=== PATIENT | male | born 2000 | race Caucasian/White ===

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

== ENCOUNTER 2022-03-15 16:25 | Emergency (ER) | payer OTHER, MEDICAID, SELFPAY ==
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
[2022-03-15 16:31] VITALS: BP 124/63; BP 137/70; PULSE 62; PULSE 79; RESP 16; TEMP 35.5; O2SAT 100; BMI 27.8
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
[2022-03-15 17:06] LABS: MANUAL DIFF FLAG NO
[2022-03-15 17:08] LABS: Basophils Absolute Auto 0.1 X10*3/uL (0.0-0.2); Basophils Percent Auto 0.5 % (0-2); Eosinophils Absolute Auto 0.3 X10*3/uL (0.0-0.4); Eosinophils Percent Auto 2.6 % (0-4); Hematocrit 41.8 % (42.0-52.0); Hemoglobin 14.3 g/dl (14.0-18.0); Imm Gran Abs Auto 0.04 X10*3/uL (0.00-0.03); Imm Gran Pct Auto 0.4 % (0.0-0.4); Lymphocytes Absolute Auto 1.6 X10*3/uL (1.2-4.9); Lymphocytes Percent Auto 17.1 % (20-40); Mean Corpuscular HGB Conc 34.2 g/dl (31.0-36.0); Mean Corpuscular Hemoglobin 29.1 pg (27.0-33.0); Mean Platelet Volume 10.3 fL (9.4-12.4); Monocytes Absolute Auto 0.7 X10*3/uL (0.1-1.2); Monocytes Percent Auto 7.1 % (2-11); Neutrophils Percent Auto 72.3 % (45-73); Platelet Count 260 X10*3/uL (160-400); Red Blood Count 4.92 X10*6/uL (4.60-5.80); Red Cell Distribution Width 12.5 % (11.0-16.0); White Blood Count 9.6 X10*3/uL (4.8-10.8)
[2022-03-15 17:20] LABS: Ethanol < 10 mg/dL
[2022-03-15 17:23] LABS: Alanine Aminotransferase 27 U/L (0-40); Albumin Level 4.3 g/dL (3.5-5.0); Alkaline Phosphatase 57 U/L (39-117); Anion Gap 10 (12-20); Aspartate Amino Transferase 31 U/L (5-37); Bilirubin Direct 0.3 mg/dL (0.0-0.5); Bilirubin Total 0.7 mg/dL (0.0-1.0); Blood Urea Nitrogen 15 mg/dL (9-16); Calcium 9.3 mg/dL (8.4-10.2); Carbon Dioxide 25 mmol/L (22-29); Chloride 107 mmol/L (96-108); Creatinine Clr Calc Pharmacy 167.6; Estimated Glomerular Filt Rate > 60; Glucose Random 105 mg/dL (60-115); Sodium 138 mmol/L (135-145); Total Protein 6.9 g/dL (6.5-8.0)
[2022-03-15] MEDS: Acetaminophen 325 MG TABLET 650 MG PO (17:24)
[2022-03-15] MEDS: ondansetron HCL 4 MG/2 ML VIAL IVPUSH (17:24)
[2022-03-15 17:46] LABS: Lipase 28 U/L (8-78)
== END 2022-03-15 19:43 | disposition home or self-care (01) ==
PROVIDERS: Emergency Provider Emergency Medicine; PCP Nurse Practitioner
DX: S06.0X9A Concussion with loss of consciousness of unspecified duration, initial encounter (principal); S13.4XXA Sprain of ligaments of cervical spine, initial encounter; S46.911A Strain of unspecified muscle, fascia and tendon at shoulder and upper arm level, right arm, initial encounter; S61.402A Unspecified open wound of left hand, initial encounter; J45.909 Unspecified asthma, uncomplicated; V49.9XXA Car occupant (driver) (passenger) injured in unspecified traffic accident, initial encounter; Y93.9 Activity, unspecified; Y92.410 Unspecified street and highway as the place of occurrence of the external cause; Y99.9 Unspecified external cause status
CPT/HCPCS: 36415; 70450; 71250; 72125; 73030; 74176; 80048; 80076; 82077; 83690; 85025; 96374; 99283; 99284; J2405

== ENCOUNTER 2022-11-21 18:13 | Emergency (ER) | payer MEDICAID, SELFPAY ==
--- NOTE | ~2022-11-21 | XR_ITS ---
EXAMINATION: XR HAND, RIGHT CLINICAL INFORMATION: Postreduction COMPARISON: Same-day radiographs TECHNIQUE: 3 views of the hand XR/XR hand RT 2V FINDINGS/IMPRESSION: Again seen is a minimally comminuted fracture of the fifth distal metacarpal diaphysis in improved alignment with minimal residual volar angulation. Overlying cast material obscures fine osseus detail. Soft tissue swelling about the hand.
--- NOTE | ~2022-11-21 | XR_ITS ---
EXAMINATION: XR HAND, RIGHT CLINICAL INFORMATION: Hand radiographs COMPARISON: None TECHNIQUE: 3 views of the hand FINDINGS: Acute minimally comminuted oblique fracture of the fifth distal metacarpal diaphysis with volar angulation of the distal fracture fragments. Joint spaces are maintained. No cortical erosion. Soft tissue swelling over the dorsum of the hand. XR/XR hand RT 2V IMPRESSION: Acute minimally comminuted oblique fracture of the fifth distal metacarpal diaphysis with volar angulation of the distal fracture fragments. Soft tissue swelling.
--- NOTE | 2022-11-21 18:15 | ED_ITS ---
HPI - Extremity Injury (Upper) General Chief Complaint: Wound/Laceration <Nasrin Tai NP - Last Filed: 11/21/22 18:16> Stated Complaint: Right hand injury; knuckles <Nasrin Tai NP - Last Filed: 11/21/22 18:16> Time Seen by Provider: 11/21/22 18:20 <Nasrin Tai NP - Last Filed: 11/21/22 18:16> Source: patient <Gary Sanchez MD - Last Filed: 11/21/22 20:27> Mode of arrival: ambulatory <Gary Sanchez MD - Last Filed: 11/21/22 20:27> Limitations: no limitations <Gary Sanchez MD - Last Filed: 11/21/22 20:27> History of Present Illness HPI narrative: 22-year-old male came in for evaluation of right hand pain after punching the wall. Patient got angry and punched the wall causing swelling of his right hand. Patient is a [id number], patient declined any SI or HI or hallucination. <Gary Sanchez MD - Last Filed: 11/21/22 20:27> Related Data Home Medications: Previous Rx's Medication Instructions Recorded cyclobenzaprine 10 mg tablet 10 mg PO TID PRN muscle spasm #14 03/15/22 tabs ibuprofen 600 mg tablet 600 mg PO Q6H PRN pain #30 tabs 03/15/22 lidocaine 5 % topical patch 1 patch topical DAILY #30 ea 03/15/22 ondansetron 4 mg disintegrating 4 mg PO Q8H PRN nausea and 03/15/22 tablet vomiting #20 tabs <Nasrin Tai NP - Last Filed: 11/21/22 18:16> Allergies/Adverse Reactions: Allergies Allergy/AdvReac Type Severity Reaction Status Date / Time No Known Allergies Allergy Unverified 06/20/20 17:45 [No Known Allergies*] <Nasrin Tai NP - Last Filed: 11/21/22 18:16> Review of Systems Review of Systems: All other systems are reviewed and are negative Constitutional: Reports as per HPI and Reports no additional constitutional complaints Eyes: Reports as per HPI and Reports no additional eye complaints Reports system reviewed and no additional complaints, except as documented Cardiovascular: Reports as per HPI and Reports no additional cardiovascular complaints Respiratory: Reports as per HPI and Reports no additional respiratory complaints Gastrointestinal: Reports as per HPI and Reports no additional gastrointestinal complaints Genitourinary: Reports no additional female genitourinary complaints Musculoskeletal: Reports no additional musculoskeletal complaints Skin/Breast: Reports system reviewed and no additional complaints, except as docu Psychiatric: Reports no additional psychiatric complaints Endocrine: Reports no additional endocrine complaints Hematologic/Lymphatic: Reports no additional hematologic/lymphatic complaints Allergic/Immunologic: Reports no additional allergic/immunologic complaints Reports system reviewed and no additional complaints, except as documented and Reports Abnormal speech present <Gary Sanchez MD - Last Filed: 11/21/22 20:27> FOR[facility]LY [facility] Past Medical History Medical History: Medical History Asthma <Nasrin Tai NP - Last Filed: 11/21/22 18:16> Social History Social History: Social History Patient Tobacco Use Status: Never used Tobacco Advance Directives: No Advance Directives Information Provided: No <Nasrin Tai NP - Last Filed: 11/21/22 18:16> Physical Exam Vital Signs: Vital Signs: Last Vital Signs Temp 98.4 F 11/21/22 20:00 Pulse 68 11/21/22 20:00 Resp 16 11/21/22 20:00 BP 139/54 L 11/21/22 20:00 Pulse Ox 98 11/21/22 20:00 O2 Del Method 11/21/22 20:00 BMI result Body Mass Index 27.8 <Nasrin Tai NP - Last Filed: 11/21/22 18:16> Vital Signs: Last Vital Signs Temp 98.4 F 11/21/22 20:00 Pulse 68 11/21/22 20:00 Resp 16 11/21/22 20:00 BP 139/54 L 11/21/22 20:00 Pulse Ox 98 11/21/22 20:00 O2 Del Method 11/21/22 20:00 BMI result Body Mass Index 27.8 Vital signs have been reviewed as appeared to be correct. Blood pressure normal. Heart rate normal. Respiration rate normal. Temperature normal. Oxygen saturation normal. <Gary Sanchez MD - Last Filed: 11/21/22 20:27> Appearance: Alert. Oriented X3. No acute distress. Head: Normal external exam. Normocephalic. Atraumatic. No Schumacher signs noted. No raccoon eyes noted Eyes: PERRLA. EOMI. Conjunctiva and sclera normal. Eyelids normal. ENT: TM's Normal. Pharynx normal. Uvula midline. Moist mucous membranes. No trismus noted. No drooling noted. No muffled voice noted. Neck: Normal inspection. Neck supple. FROM. No adenopathy. Thyroid Normal. No meningeal signs. No neck mass noted. CVS: Normal heart rate and rhythm. Heart sound normal. No murmurs noted. Pulses normal throughout. Respiratory: No respiratory distress. Painless inspiration. Breath sounds normal. No wheezes/rales/rhonchi noted. Chest nontender. No accessory muscle usage noted or decreased air movement noted. Abdomen: Soft and nontender. Bowel sounds normal in all 4 quadrants. No distention noted. No organomegaly noted. No visible injury noted. Back: No CVA tenderness. Full range of motion noted. Skin: Skin warm and dry. Normal skin color. Normal skin turgor. No rashes/lesions/lacerations noted. Extremities: Right hand exam: Tenderness with deformity and swelling over 5th distal metacarpal bone, able to move all fingers, neurovascularly intact. Neuro: Oriented X 3. Cranial nerve exam: II-XII are grossly intact No motor deficit. No sensory deficit. Reflexes normal. <Gary Sanchez MD - Last Filed: 11/21/22 20:27> Course Course Course Narrative: This is a rapid medical exam. Deferred additional HPI, ROS, PE to primary provider. 22 yo male right handed here with right hand pain after punching house wall. Will need x-rays. VSS <Nasrin Tai NP - Last Filed: 11/21/22 18:16> Reevaluation(s) Reevaluation #1: Right hand boxer fracture after punched a wall, attempt to reduce the fracture in the ED, apply splint, ice, NSAIDs if needed for pain and follow up with Ortho. <Gary Sanchez MD - Last Filed: 11/21/22 20:27> Time: 19:26 <Gary Sanchez MD - Last Filed: 11/21/22 20:27> Medical Decision Making Differential Diagnosis Differential Diagnoses: The differential diagnosis associated with the presentation includes (Hand contusion, fracture, neurovascular compromise.) <Gary Sanchez MD - Last Filed: 11/21/22 20:27> Independent Interpretation I performed an independent interpretation of an: Plain X-Ray (Right hand:Acute minimally comminuted oblique fracture of the fifth distal metacarpal diaphysis with volar angulation of the distal fracture fragments. Soft tissue swelling. ) <Gary Sanchez MD - Last Filed: 11/21/22 20:27> Radiology Impression Discussion of test interpretation with radiology: I have reviewed the radiologist's reading. <Gary Sanchez MD - Last Filed: 11/21/22 20:27> Procedures Orthopedic Fracture Reduction Fracture #1: Time Out Performed: Yes <Gary Sanchez MD - Last Filed: 11/21/22 20:27> Side: right <Gary Sanchez MD - Last Filed: 11/21/22 20:27> Fracture Reduction Location: metacarpal (First) <Gary Sanchez MD - Last Filed: 11/21/22 20:27> Analgesia: none <Gary Sanchez MD - Last Filed: 11/21/22 20:27> Technique: direct manipulation and traction/counter-traction <Gary Sanchez MD - Last Filed: 11/21/22 20:27> Post Reduction X-rays Demonstrate: acceptable reduction <Gary Sanchez MD - Last Filed: 11/21/22 20:27> Post-reduction neuro exam: intact <Gary Sanchez MD - Last Filed: 11/21/22 20:27> Post-reduction vascular exam: intact <Gary Sanchez MD - Last Filed: 11/21/22 20:27> Splint Applied: Yes <Gary Sanchez MD - Last Filed: 11/21/22 20:27> Patient Tolerated Procedure: well <Gary Sanchez MD - Last Filed: 11/21/22 20:27> Discharge Plan Discharge Clinical Impression: Fracture of fifth metacarpal bone of right hand <Nasrin Tai NP - Last Filed: 11/21/22 18:16> Patient Disposition: Home, Self-Care <Nasrin Tai NP - Last Filed: 11/21/22 18:16> Instructions: Hand Fracture (ED) <Nasrin Tai NP - Last Filed: 11/21/22 18:16> Prescriptions: No Action cyclobenzaprine 10 mg tablet 10 mg PO TID PRN (Reason: muscle spasm) Qty: 14 0RF lidocaine 5 % adhesive patch,medicated 1 patch topical DAILY Qty: 30 0RF Rx Instructions: leave on most painful area for up to 12 hrs ibuprofen 600 mg tablet 600 mg PO Q6H PRN (Reason: pain) Qty: 30 0RF ondansetron 4 mg tablet,disintegrating 4 mg PO Q8H PRN (Reason: nausea and vomiting) Qty: 20 0RF <Nasrin Tai NP - Last Filed: 11/21/22 18:16> Referrals: Otoniel Foster MD [Physician] - <Nasrin Tai NP - Last Filed: 11/21/22 18:16> Stand Alone Forms: Work/School Release <Nasrin Tai NP - Last Filed: 11/21/22 18:16>
[2022-11-21 18:16] VITALS: BP 126/65; PULSE 57; RESP 16; TEMP 36.6; O2SAT 99; BMI 27.8
[2022-11-21 20:00] VITALS: BP 139/54; PULSE 68; RESP 16; TEMP 36.9; O2SAT 98
== END 2022-11-21 20:34 | disposition home or self-care (01) ==
PROVIDERS: Emergency Provider Emergency Medicine; PCP Nurse Practitioner
DX: S62.396A Other fracture of fifth metacarpal bone, right hand, initial encounter for closed fracture (principal); W22.09XA Striking against other stationary object, initial encounter; Y93.89 Activity, other specified; Y92.9 Unspecified place or not applicable; Y99.9 Unspecified external cause status
CPT/HCPCS: 26605; 73120; 99283; 99284

== ENCOUNTER 2022-11-30 11:05 | Outpatient (REF) | payer MEDICAID, SELFPAY ==
--- NOTE | ~2022-11-30 | XR_ITS ---
EXAMINATION: XR HAND, RIGHT CLINICAL INFORMATION: Pain COMPARISON: Right hand radiograph from 11/21/2022 TECHNIQUE: PA, lateral, and oblique views of the right hand. FINDINGS: Overlying ulnar gutter splint slightly obscures fine osseous and soft tissue detail. Redemonstration of minimally comminuted apex displaced fracture involving the fifth distal metacarpal diaphysis. Joint spaces and alignment are maintained. Soft tissues are unremarkable. XR/XR hand RT min 3V IMPRESSION: 1. Overlying ulnar gutter splint slightly obscures fine osseous and soft tissue detail. 2. Redemonstration of minimally comminuted apex dorsal fracture involving the fifth metacarpal distal diaphysis.
== END 2022-11-30 11:06 | disposition home or self-care (01) ==
LOC: HO.HOSX 11:05
PROVIDERS: Visit Provider Physician Assistant
DX: S62.316A Displaced fracture of base of fifth metacarpal bone, right hand, initial encounter for closed fracture (principal); W22.09XA Striking against other stationary object, initial encounter
CPT/HCPCS: 26600; 73130; 99202

== ENCOUNTER 2022-12-10 05:59 | Outpatient (REF) | payer MEDICAID, SELFPAY ==
--- NOTE | ~2022-12-10 | XR_ITS ---
EXAMINATION: XR HAND, RIGHT CLINICAL INFORMATION: Fracture COMPARISON: 11/30/2022 TECHNIQUE: PA, lateral, and oblique views of the right hand. FINDINGS: Redemonstration of horizontally oriented fracture of the fifth metacarpal head with palmar angulation of the distal fracture fragment. XR/XR hand RT min 3V IMPRESSION: Redemonstration of horizontally oriented fracture of the fifth metacarpal head with palmar angulation of the distal fracture fragment.
== END 2022-12-10 06:00 | disposition home or self-care (01) ==
LOC: HO.HOSX 05:59
PROVIDERS: Visit Provider Physician Assistant
DX: S62.336D Displaced fracture of neck of fifth metacarpal bone, right hand, subsequent encounter for fracture with routine healing (principal)
CPT/HCPCS: 29085; 73130

== ENCOUNTER 2023-01-11 11:23 | Outpatient (REF) | payer MEDICAID, SELFPAY ==
--- NOTE | ~2023-01-11 | XR_ITS ---
EXAMINATION: XR HAND, RIGHT CLINICAL INFORMATION: Right hand pain COMPARISON: 12/10/2022 TECHNIQUE: PA, lateral, and oblique views of the right hand. FINDINGS: Redemonstration of horizontally oriented fracture of the fifth metacarpal head with mild angulation of the distal fracture fragment without significant interval callus formation. Remaining osseous structures are preserved. XR/XR hand RT min 3V IMPRESSION: Redemonstration of horizontally oriented fracture of the fifth metacarpal head with mild angulation of the distal fracture fragment.
== END 2023-01-11 11:24 | disposition home or self-care (01) ==
LOC: HO.HOSX 11:23
PROVIDERS: Visit Provider Physician Assistant
DX: S62.336D Displaced fracture of neck of fifth metacarpal bone, right hand, subsequent encounter for fracture with routine healing (principal)
CPT/HCPCS: 73130

== ENCOUNTER 2023-02-22 07:10 | Outpatient (REF) | payer MEDICAID, SELFPAY ==
--- NOTE | ~2023-02-22 | XR_ITS ---
EXAMINATION: XR HAND, RIGHT CLINICAL INFORMATION: Pain. COMPARISON: Radiograph of the right hand 01/11/2023. TECHNIQUE: PA, lateral, and oblique views of the right hand. FINDINGS: Again noted distal fifth metacarpal fracture with increased osseous bridging and a less distinct fracture line indicating healing. Mild angulation of the distal fracture fragment is unchanged. No significant callus formation. Remaining osseous structures are within normal limits. XR/XR hand RT min 3V IMPRESSION: Healing distal fifth metacarpal fracture with unchanged mild angulation of the distal fracture fragment.
== END 2023-02-22 07:11 | disposition home or self-care (01) ==
LOC: HO.HOSX 07:10
PROVIDERS: Visit Provider Physician Assistant
DX: S62.306D Unspecified fracture of fifth metacarpal bone, right hand, subsequent encounter for fracture with routine healing (principal); X58.XXXD Exposure to other specified factors, subsequent encounter
CPT/HCPCS: 73130; 99212

== ENCOUNTER 2024-04-03 08:33 | Emergency (ER) | payer BC, SELFPAY ==
--- NOTE | ~2024-04-03 | XR_ITS ---
EXAMINATION: XR LUMBOSACRAL SPINE CLINICAL INFORMATION: Low back pain COMPARISON: None available. TECHNIQUE: Three views of the lumbosacral spine. FINDINGS: The vertebral bodies and posterior elements are normal. There is some trace disc space narrowing at L4-L5. The disc spaces are otherwise preserved and the vertebral alignment is normal. The paraspinal soft tissues are normal. XR/XR lumbar spine 2-3V IMPRESSION: Trace disc space narrowing L4-L5.
[2024-04-03 09:06] VITALS: BP 117/49; PULSE 55; RESP 16; TEMP 36; O2SAT 98; BMI 27.9
[2024-04-03 12:03] VITALS: BP 125/63; PULSE 53; RESP 18; O2SAT 99
--- NOTE | 2024-04-03 12:04 | ED_ITS ---
HPI - General Adult General Chief complaint: Back Pain/Injury Stated complaint: back pain Time Seen by Provider: 04/03/24 12:04 Source: patient and other (patient's girlfriend) Mode of arrival: ambulatory Limitations: no limitations History of Present Illness ED Provider: Noemí Deleon PA-C HPI narrative: Patient is a 23 year old assigned male at with no reported medical history presenting to the emergency department today with low back pain. Patient states that he bent over to put his socks on this morning and felt a pop in his low back and continues to have low back pain. Patient denies any dizziness, lightheadedness, abdominal pain, nausea, vomiting, fever, chills, blurry vision, double vision, loss of vision, chest pain, difficulty breathing, shortness of breath, night sweats, pain with urination, increased urinary frequency, increased urinary urgency, blood in his urine or stool, syncope or a near syncopal episode, recent trauma or falls, bowel incontinence, bladder incontinence, or any other complaints at this time. Onset (ago): hour(s) Location: back Radiation: non-radiation Severity: mild Severity scale (1-10): 3 Quality: aching and dull Pain Consistency: constant Relieving factors: none Exacerbating factors: movement Associated symptoms: denies other symptoms Treatments prior to arrival: none Related Data Previous Rx's ?Medication ?Instructions ?Recorded cyclobenzaprine 10 mg tablet 10 mg PO TID PRN muscle spasm #14 03/15/22 tabs ibuprofen 600 mg tablet 600 mg PO Q6H PRN pain #30 tabs 03/15/22 lidocaine 5 % topical patch 1 patch topical DAILY #30 ea 03/15/22 ondansetron 4 mg disintegrating 4 mg PO Q8H PRN nausea and 03/15/22 tablet vomiting #20 tabs cyclobenzaprine 5 mg tablet 5 mg PO TID PRN low back pain 7 04/03/24 days #21 tabs lidocaine 5 % topical patch 1 patch topical DAILY #30 ea 04/03/24 naproxen 500 mg tablet 500 mg PO BID 7 days #14 tabs 04/03/24 Allergies Allergy/AdvReac Type Severity Reaction Status Date / Time No Known Allergies Allergy Verified 04/03/24 09:07 [No Known Allergies*] Review of Systems Constitutional: Constitutional: Reports no additional constitutional complaints, Denies chills, Denies fever(s) and Denies night sweats Eyes: Eyes: Reports no additional eye complaints, Denies blurry vision, Denies change in vision, Denies diplopia, Denies eye discharge, Denies loss of vision and Denies eye pain ENT: Denies dizziness Cardiovascular: Cardiovascular: Reports no additional cardiovascular complaints, Denies chest pain, Denies lightheadedness, Denies Loss of Consciousness and Denies dyspnea Respiratory: Respiratory: Reports no additional respiratory complaints and Denies dyspnea Gastrointestinal: Gastrointestinal: Reports no additional gastrointestinal complaints, Denies abdominal pain, Denies melena, Denies hematochezia, Denies change in bowel habits and Denies change in stool character Genitourinary: Genitourinary: Reports no additional male genitourinary complaints, Denies hematuria, Denies oliguria, Denies difficulty urinating, Denies dysuria, Denies urinary frequency, Denies urinary hesitancy, Denies urinary incontinence and Denies urinary urgency Musculoskeletal: Musculoskeletal: Reports no additional musculoskeletal complaints, Reports back pain, Denies numbness and Denies tingling Neurologic: Denies dizziness, Denies loss of vision, Denies numbness and Denies tingling Psychiatric: Psychiatric: Reports no additional psychiatric complaints Endocrine: Endocrine: Reports no additional endocrine complaints Hematologic/Lymphatic: Hematologic/Lymphatic: Reports no additional hematologic/lymphatic complaints Allergic/Immunologic: Allergic/Immunologic: Reports no additional allergic/immunologic complaints PMFSH Past Medical History Attestation statement: The following information was validated with the patient. 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 Physical Exam ED Vital Signs: Vital Signs - 24 hr 04/03/24 09:06 04/03/24 12:03 Temperature 96.8 F Pulse Rate 55 53 Respiratory Rate 16 18 Blood Pressure 117/49 L 125/63 Pulse Oximetry 98 99 Oxygen Delivery Method Room Air Room Air BMI result Body Mass Index 27.9 Const General: cooperative, no acute distress, alert and awake Nutritional Appearance: well nourished Orientation/consciousness: patient oriented x3 Limitations: no limitations HENMT Head: Yes normal to inspection and Yes atraumatic Ears: hearing grossly normal bilaterally and external ears normal General nose exam: Normal external nose present, no nasal discharge noted and no epistaxis Face and sinus: Yes normal facial exam, No abrasion and No laceration Mouth: Normal oral and palatal mucosa present, no drooling and no muffled voice Eyes General: appearance normal, both eyes and all related structures Periorbital: periorbital findings normal Eyelids: Yes eyelids normal Conjunctivae: conjunctivae normal Pupils: Equal, round and reactive pupils present EOM: EOMs intact bilaterally Neck Neck: Yes normal visual inspection, Yes full ROM and Yes no lymphadenopathy Chest Chest palpation & inspection: normal inspection of the chest Resp Effort & Inspection: normal respiratory effort and able to speak in complete sentences GI Inspection: Yes normal to inspection Neuro General: patient oriented x3 and moves all extremities Cranial nerves: Yes Equal, round and reactive pupils present Cognition (Neuro): normal cognition Motor exam (neuro): 5/5 motor strength present throughout Sensory Exam: Normal double simultaneous stimulation for sensation Coordination: [id number] test normal Extrem General: Yes normal to inspection, Yes full ROM and Yes capillary refill normal Psych Appearance: grossly normal Mental Status: mental status grossly normal Affect: normal affect Attitude: cooperative Thought process: Normal thought process present Thought content: Normal thought content present Insight: Good insight present (Psych) Medical Decision Making Medical Decision Making MDM Narrative: Patient is a 23 year old assigned male at with no reported medical history presenting to the emergency department today with low back pain. Patient's physical exam was unremarkable. Patient's lumbar x-ray showed no acute process. I explained my physical exam findings as well as all test results to the patient and the patient's girlfriend. I answered all questions asked by the patient and the patient's girlfriend. I stressed the importance of the patient taking his medication as directed (either prescribed or as the over the counter packaging recommends). I stressed the importance of the patient following up with his primary care provider. I stressed the importance of the patient returning to the emergency department immediately if his symptoms were to worsen or if he were to develop any dizziness, shortness of breath, difficulty breathing, chest pain, blurry vision, loss of vision, nausea, vomiting, abdominal pain, fever, chills, back pain, or any other complaints. Patient and the patient's girlfriend verbalized agreement and understanding with this treatment plan and discharge. Differential Diagnosis Differential Diagnoses: The differential diagnosis associated with the presentation includes Low back pain Lumbar strain Lumbar sprain Admission/Observation Consideration of admission/observation: Escalation of care including adm ission/observation considered Patient would have been admitted to the hospital had his work up had any findings where hospital admission was appropriate and his clinical presentation warranted hospital admission. Independent Interpretation I performed an independent interpretation of an: Plain X-Ray Interpretation: My interpretation is in agreement with the radiologist's impression of this imaging study. ------ -------- EXAMINATION: XR LUMBOSACRAL SPINE CLINICAL INFORMATION: Low back pain COMPARISON: None available. TECHNIQUE: Three views of the lumbosacral spine. FINDINGS: The vertebral bodies and posterior elements are normal. There is some trace disc space narrowing at L4-L5. The disc spaces are otherwise preserved and the vertebral alignment is normal. The paraspinal soft tissues are normal. XR/XR lumbar spine 2-3V IMPRESSION: Trace disc space narrowing L4-L5. Dictated By: Tevin Stern MD Signed By: Electronically signed by Tevin Stern MD 04/03/24 1024 Radiology Impression Discussion of test interpretation with radiology: I have reviewed the radiologist's reading. Independent Historian Clinical information obtained from an independent historian. History obtained from or confirmed by: Other (patient's girlfriend provided additional history and confirmed the history provided by the patient.) Discharge Plan Discharge Clinical Impression: Low back pain Patient Disposition: Home, Self-Care Instructions: Acute Low Back Pain (ED) Additional Instructions: Follow up with your primary care provider. Return to the emergency department immediately if your symptoms worsen or if you develop any dizziness, shortness of breath, difficulty breathing, chest pain, blurry vision, loss of vision, nausea, vomiting, abdominal pain, fever, chills, back pain, or any other complaints. Prescriptions: New naproxen 500 mg tablet 500 mg PO BID 7 Days Qty: 14 0RF cyclobenzaprine 5 mg tablet 5 mg PO TID PRN (Reason: low back pain) 7 Days Qty: 21 0RF lidocaine 5 % adhesive patch,medicated 1 patch topical DAILY Qty: 30 0RF Rx Instructions: leave on most painful area for up to 12 hrs No Action cyclobenzaprine 10 mg tablet 10 mg PO TID PRN (Reason: muscle spasm) Qty: 14 0RF lidocaine 5 % adhesive patch,medicated 1 patch topical DAILY Qty: 30 0RF Rx Instructions: leave on most painful area for up to 12 hrs ibuprofen 600 mg tablet 600 mg PO Q6H PRN (Reason: pain) Qty: 30 0RF ondansetron 4 mg tablet,disintegrating 4 mg PO Q8H PRN (Reason: nausea and vomiting) Qty: 20 0RF Referrals: [facility] [place] [Provider Group] (Call to establish and follow up with a primary care provider. If you already have a primary care provider, please follow up with them.) [facility] [place] Primary [facility] [Provider Group] [facility] [place] Primary [facility] [Provider Group] Stand Alone Forms: Work/School Release Print Language: Upper Sorbian
[2024-04-03 12:12] VITALS: BP 125/63; PULSE 53; RESP 18; TEMP 36.8; O2SAT 99
== END 2024-04-03 12:12 | disposition home or self-care (01) ==
PROVIDERS: Emergency Provider Emergency Medicine
DX: M54.50 Low back pain, unspecified (principal)
CPT/HCPCS: 72100; 99282; 99283

== ENCOUNTER 2025-09-24 15:50 | Outpatient (AMB) | payer BC, MEDICAID, SELFPAY ==
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
[2025-09-24 16:10] VITALS: BP 120/58; PULSE 60; TEMP 36.9; O2SAT 97; BMI 31.0
--- OUTSIDE RECORDS SUMMARY | 2025-09-24 18:39 | XMS_ITS | Clinical Summary ---
Author Organization [facility] Address [address] [place] [id number] Care Team Providers Care Computed Tomography Technologist Name Role Phone Pcp, No Primary Care Provider Unavailabl e Allergies No known active allergies Medications ciclopirox (LOPROX) 0.77 % creamIndication s:Ringworm of body Apply topically 2 (two) times a day. 90 g 5 Active econazole nitrate (SPECTAZOLE) 1 % creamIndication s:Ringworm of body Apply topically daily. 85 g 5 Active miconazole (MICATIN) 2 % creamIndication s:Ringworm of body Apply topically 2 (two) times a day. 141.7 g 5 Active Social History Tobacco Use Types Packs/Day Years Used Date Smoking Tobacco: Never Assessed Sex and Gender Information Value Date Recorded Sex Assigned at Not on file Legal Sex Male 8:02 AM EST Gender Identity Not on file Sexual Orientation Not on file Last Filed Vital Signs Vital Sign Reading Time Taken Comments Blood Pressure 122/58 11/08/2024 8:16 AM EST Pulse 64 11/08/2024 8:16 AM EST Temperature 36.8 C (98.3 F) 11/08/2024 8:16 AM EST Respiratory Rate 16 11/08/2024 8:16 AM EST Oxygen Saturation 96% 11/08/2024 8:16 AM EST Inhaled Oxygen Concentration - - Weight 93 kg (205 lb) 11/08/2024 8:16 AM EST Height 180.3 cm (5' 11 ) 11/08/2024 8:16 AM EST Body Mass Index 28.59 11/08/2024 8:16 AM EST Plan of Treatment Health Maintenance Due Date Last Done Comments Hepatitis C Virus Screening 2001 HPV Vaccines (1 - Male 3-dose series) 2016 DTaP/Tdap/Td Vaccines (1 - Tdap) 2020 Hepatitis B Vaccines (1 of 3 - 19+ 3-dose series) 2020 Influenza Vaccine 05/04/2025 08/09/2023, , 06/30/2017, Additional history exists COVID-19 Vaccine ( - 2024- season) 2025 04/09/2021, 03/12/2021 HIV Screening Completed 03/30/2023 Pneumococcal Vaccine: Pediatric (0-5 Years) and At-Risk Patients (6 to 49 Years) Aged Out No longer eligible based on patient's age to complete this topic Insurance [facility] - PPO Care Teams Computed Tomography Technologist Relationship Specialty Start Date End Date Pcp, No PCP - General General Medicine 11/08/24
--- OUTSIDE RECORDS SUMMARY | 2025-09-24 18:40 | XMS_ITS | Clinical Summary ---
Author Organization [employer] Address [address] [place] [address] [address] [place] [address] Care Team Providers Care Traveling Electrician Name Role Phone Mariana Perez THERAPY ADMINISTRATIVE ASSISTANT Primary Care Provider [phone] Allergies No known active allergies Medications Omeprazole 20 MG tablet delayed-release Indications:Hea rt burn Take 20 mg by mouth in the morning. 14 tablet 2 Active Additional Information Patient not taking.Reported on 04/30/2023 triamcinolone (Kenalog) 0.1 % ointmentIndicat ions:Rash Apply topically 2 times daily. 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 Back in January. Symptoms had only a modest improvement Etiology? Plan; STD testing, Viral Cx Will refer to Dermatology Follow up with PCP Penis symptom or sign 03/30/2023 Assessment & Plan (03/30/2023 4:06 PM EDT): Pt with persistent lesions on his glans, not responding to topical steroid cream. Etiology ? Plan: STD Testing, Viral Cx to r/o HSV Dermatology consult might need biopsy Follow up with PCP Mild intermittent asthma 05/04/2017 Obesity 06/29/2012 Immunizations Immunization Administration Dates Next Due DTaP 02/02/2006, 5,05/28/2005,02/15,01/31/2003,08/21/2002,07/03/2002 HPV 9-Valent 07/24/2015 HPV, Quadrivalent 01/29/2015,12/30/2012 Hep A, ped/adol, 2 dose 01/29/2015,11/06/2010 Hep B, Adolescent or Pediatric 6,08/18/2002,07/03/2002,05/28,01/19/2002,2001 Hib (HbOC) 05/28/2005, 2,08/21/2002,08/18,07/03/2002,01/19/2002,2001 IPV 07/08/2007, 6,05/28/2005,03/21,01/19/2002,2001 Influenza injectable quadriv alent IIV4 with preservative 08/17/2016 Influenza injectable quadriv alent preservative free 08/09/2023,08/11/2018,06/30/2017,07/24 Influenza, IIV3, injectable 06/07/2009, 9 Influenza, Split (incl. breanna fied surface antigen) 06/29/2012 MMR 05/28/2005,08/18/2002,07/03/2002 Meningococcal MCV4P ACYW-135 08/11/2018,12/31/19 13 Moderna Covid-19 Vaccine 12+ 04/09/2021,03/12/20 21 Pneumococcal Conjugate PCV 7 2001 Tdap 08/09/2023,12/30/2012 Varicella 05/28/2005,07/03/2002 Family History Medical History Relation Name Comments Diabetes type II Maternal Grandmother Hypertension Mother Relation Name Status Comments Maternal Grandmother Mother Social History Tobacco Use Types Packs/Day Years Used Date Smoking Tobacco: Never Passive Smoke Exposure: Never Smokeless Tobacco: Never Tobacco Cessation:Counseling Given: Not Answered Comments:Smokes marijuana on tobacco. Alcohol Use Standard Drinks/Week Comments Yes 0 (1 standard drink = 0.6 oz pur e alcohol) ocassioanally Alcohol Answer Date Recorded Frequency of Alcohol Consumption Not on file 08/09/2023 Average Number of Drinks Not on file 023 Frequency of Binge Drinking Not on file 03/2023 Score 0 08/09/2023 Depression Answer Date Recorded Patient Health Questionnaire-9 Score 0 08/09/2023 Patient Health Questionnaire-9 Score 0 08/09/2023 Last PHQ-9: Questionnaire Data Not on file 1 10/09/2022 Housing Stability Answer Date Recorded What is your housing situation today? I have riccardo abrams 07/30/[address] you li ve. Do you have problems with any of the following? None of the above 07/30/2023 Food Insecurity Answer Date Recorded Within the past 12 months, y ou worried that your food would run out before you got money to buy more: Never True 07/30/2023 Within the past 12 months,th e food you bought just didn't last and you didn't have enough money to get more: Never True Transportation Answer Date Recorded In the past 12 months, has l ack of transportation kept you from medical appts, meetings, work or from getting things needed for daily living? No 07/30/2023 Utilities Answer Date Recorded In the past 12 months, has t he electric, gas, oil or water company threatened to shut off services in your home? No 07/30/2023 Depression Answer Date Recorded Patient Health Questionnaire-2 Score 0 08/09/2023 Sex and Gender Information Value Date Recorded Sex Assigned at Male 08/03/2022 10:20 AM EDT Legal Sex Male 10:20 AM EDT Gender Identity Male 08/03/2022 10:20 AM EDT Sexual Orientation Straight 08/03/2022 10 :20 AM EDT Last Filed Vital Signs Vital Sign Reading Time Taken Comments Blood Pressure 118/62 11/05/2023 3:05 PM EST Pulse 68 11/05/2023 3:05 PM EST Temperature 36.3 C (97.3 F) 08/09/2023 9:26 AM EST Respiratory Rate 18 08/09/2023 9:26 AM EST Oxygen Saturation 97% 08/09/2023 9:26 AM EST Inhaled Oxygen Concentration - - Weight 92.4 kg (203 lb 12.8 oz) 08/09/2023 9:26 AM EST Height 180.3 cm (5' 11 ) 08/09/2023 9:26 AM EST Body Mass Index 28.42 08/09/2023 9:26 AM EST Plan of Treatment Health Maintenance Due Date Last Done Comments Lipid Panel 2001 Disability Screening 2001 Alcohol/Substance Use Screening 2013 Family Planning (PISQ) 2016 Pneumococcal Vaccine: Pediatrics (0 to 5 Years) and At-Risk Patients (6 to 49) Years (1 of 2 - PCV) 2020 2001 Dental Oral Exam 04/12/2024 10/12/2023, 04/29/2018 Dental Prophylaxis 05/06/2024 11/05/2023, 04/29/2018 Depression Screening 08/09/2024 08/09/2023, 08/09/20 23 SDOH Screening 08/09/2024 08/09/2023 Dental X-Ray: Bitewings 10/13/2024 10/12/2023, 04/29 Tobacco Screening 11/05/2024 11/05/2023 COVID-19 Vaccine ( season) 2025 04/09/2021, 03/12/2021 Influenza Vaccine (#1) 2025 , 08/11/2018, 06/30/2017, Additional history exists Dental X-Ray: Full Mouth 10/13/2026 10/12/2023, 04/04 DTaP/Tdap/Td Vaccines (7 - Td or Tdap) 08/09/2033 08/09/2023, 12/30/2012, 02/02/2006, Additional history exists Zoster Vaccines (1 of 2) 2051 RSV Patients and Patients Aged 60 years or older (1 - 1-dose 75+ series) 2076 HIB Vaccines Completed 05/28/2005, 09/03, 08/21/2002, Additional history exists Hepatitis B Vaccines Completed 02/02/2006, 08/18/2002, 07/03/2002, Additional history exists IPV Vaccines Completed 07/08/2007, 050 11/2005, 05/28/2005, Additional history exists Hepatitis A Vaccines Completed 01/29/2015, 11/06/19 11 HPV Vaccines Completed 07/24/2015, 01/03, 12/30/2012 Meningococcal Vaccine Completed 08/11/2018, 013 HIV Screening Completed 03/30/2023 Hepatitis C Screening Completed 03/30/2023 Meningococcal B Vaccine Aged Out No l onger eligible based on patient's age to complete this topic RSV under 20 months Aged Out No longe r eligible based on patient's age to complete this topic Rotavirus Vaccines Aged Out No longer eligible based on patient's age to complete this topic Procedures Procedure Name Priority Date/Time Associated Diagnosis Comments PROPHYLAXIS - ADULT Routine 11/05/2023 3 :00 PM EST Dental plaque INTRAORAL - COMPLETE SERIES OF RADIOGRAPHIC IMAGES Routine 10/12/2023 1:30 PM EST Encounter for dental examination Tooth sensitivity to cold PERIODIC ORAL EVALUATION - ESTABLISHED PATIENT Routine 10/12/2023 1:30 PM EST Encounter for dental examination Tooth sensitivity to cold HEPATITIS C AB W/REFL TO HCV RNA, QN, PCR Routine 03/30/2023 1:43 PM EDT Dermatitis HIV 1/2 ANTIGEN/ANTIBODY, FOURTH GENERATION W/RFL Routine 03/30/2023 1:43 PM EDT Dermatitis from Last 3 Months or Most Recently Relevant to Health Maintenance Results * Hepatitis C Antibody with Reflex to HCV, RNA, Quantitative, Real-Time PCR (03/30/2023 1:43 PM EDT) Pathologist [facility] Hepatitis C Antibody NON-REACT IVY NON-REACT IVY [facility] Comment: HCV antibody was non-reactive. There is no laboratory evidence of HCV infection. In most cases, no further action is required. However, if recent HCV exposure is suspected, a test for HCV RNA (test code 15550) is suggested. For additional information please refer to http://education.Eatwave/faq/DVB23j8 (This link is being provided for informational/ educational purposes only.) Blood Venous blood specimen / Unknown 03/30/2023 1:43 PM EDT 03/30/2023 1:44 PM EDT Luis Khan MD LAB BLOOD ORDERABLES Final Result Performing Organization Address [facility] Co de Phone Number [facility] [address], [facility] [place] [address] [facility] [place] [employer] [address] [place] [address] * HIV-1/2 Antigen and Antibodies, Fourth Generation, with Reflexes (03/30/2023 1:43 PM EDT) [facility] HIV Antigen/Antibody, 4th Generation NON-REAC TIVE NON-REAC TIVE [facility] [place] [facility] Comment: HIV-1 antigen and HIV-1/HIV-2 antibodies were not detected. There is no laboratory evidence of HIV infection. PLEASE NOTE: This information has been disclosed to you from records whose confidentiality may be protected by state law. If your state requires such protection, then the state law prohibits you from making any further disclosure of the information without the specific written consent of the person to whom it pertains, or as otherwise permitted by law. A general authorization for the release of medical or other information is NOT sufficient for this purpose. For additional information please refer to http://education.[employer].FastPay/faq/RIM717 (This link is being provided for informational/ educational purposes only.) The performance of this assay has not been clinically validated in patients less than 2 years old. Blood Venous blood specimen / Unknown 03/30/2023 1:43 PM EDT 03/30/2023 1:44 PM EDT Luis Khan MD LAB BLOOD ORDERABLES Final Result [facility] [address], [facility] [place] [address] [facility] [place] [facility] [address] [place] [address] from Last 3 Months or Most Recently Relevant to Health Maintenance [place] MEDICAID STAND ADULT Care Teams Traveling Electrician Relationship Specialty Start Date End Date Mariana Perez FNP [address] [place] [phone] PCP - General Family Medicine 04/12/22
== END 2025-09-24 16:38 | disposition home or self-care (01) ==
PROVIDERS: PCP Student in an Organized Health Care Education/Training Program; Visit Provider Student in an Organized Health Care Education/Training Program
DX: Z23 Encounter for immunization (principal)

== ENCOUNTER → 2025-09-24 15:50 | Outpatient (BNVA) | payer BC, MEDICAID, SELFPAY | PROVIDERS: Visit Provider Student in an Organized Health Care Education/Training Program | DX: Z13.31 Encounter for screening for depression (principal); Z13.39 Encounter for screening examination for other mental health and behavioral disorders; Z23 Encounter for immunization | CPT/HCPCS: 90471; 90656; 96127 ==

== ENCOUNTER 2025-10-02 09:34 | Outpatient (REF) | payer BC, SELFPAY ==
--- OUTSIDE RECORDS SUMMARY | 2025-10-02 12:21 | XMS_ITS | Clinical Summary ---
Author Organization [facility] Address [address] [place] [id number] Care Team Providers Care Development Lead Name Role Phone Pcp, No Primary Care [...] patient's age to complete this topic Insurance [facility] OUT OF STATE - PPO Care Teams Development Lead Relationship Specialty Start Date End Date Pcp, No PCP - General General Medicine 11/08/24
--- OUTSIDE RECORDS SUMMARY | 2025-10-02 12:21 | XMS_ITS | Clinical Summary ---
Author Organization [employer] Address [address] [place] [address] [address] [place] [address] Care Team Providers Care Construction Site Manager Name Role Phone Mariana Perez STAFFING BRANCH MANAGER Primary Care Provider [phone] Allergies No known active allergies Medications Omeprazole [...] Hepatitis C Antibody NON-REACT IVY NON-REACT IVY [facility] Comment: HCV antibody was non-reactive. There is no laboratory evidence of HCV infection. In most cases, no further action is required. However, if recent HCV exposure is suspected, a test for HCV RNA (test code 17634) is suggested. For additional information please refer to http://education.Camelot Information Systems/faq/HAI08d7 (This link is being provided for informational/ educational purposes only.) Blood Venous blood specimen / Unknown 03/30/2023 1:43 PM EDT 03/30/2023 1:44 PM EDT Luis Khan MD LAB BLOOD ORDERABLES Final Result Performing Organization Address [facility] [address]/[facility] Co de Phone Number [facility] [address], [facility] [place] [address] [facility] [place] [employer] [address] [place] [address] * HIV-1/2 Antigen and Antibodies, Fourth Generation, with Reflexes (03/30/2023 1:43 PM EDT) [facility] HIV Antigen/Antibody, 4th Generation NON-REAC TIVE NON-REAC TIVE [facility] [place] [facility] Comment: HIV-1 antigen and HIV-1/HIV-2 antibodies [...] purpose. For additional information please refer to http://education.[employer]ia.[employer]ing/faq/IMA418 (This link is being provided for informational/ educational purposes only.) The performance of this assay has not been clinically validated in patients less than 2 years old. Blood Venous blood specimen / Unknown 03/30/2023 1:43 PM EDT 03/30/2023 1:44 PM EDT Luis Khan MD LAB BLOOD ORDERABLES Final Result [facility] [address], [facility] [place] [address] [facility] [place] [facility] [address] [place] [address] from Last 3 Months or Most Recently Relevant to Health Maintenance Insurance [place] MEDICAID STAND ADULT Care Teams Construction Site Manager Relationship Specialty Start Date End Date Mariana Perez FNP [address] [place] [id number] PCP - General Family Medicine 04/12/22
[2025-10-02 14:06] LABS: MANUAL DIFF FLAG NO
[2025-10-02 14:08] LABS: Appearance Urine Clear; Glucose Urine UA Negative (Negative); PH 7.0 (5.0-9.0); Specific Gravity - Urine 1.025 (1.005-1.025)
[2025-10-02 14:09] LABS: Hematocrit 49.7 % (42.0-52.0); Hemoglobin 16.8 g/dl (14.0-18.0); Imm Gran Abs Auto 0.05 X10*3/uL (0.00-0.03); Imm Gran Pct Auto 0.6 % (0.0-0.4); Lymphocytes Absolute Auto 1.7 X10*3/uL (1.2-4.9); Mean Corpuscular HGB Conc 33.8 g/dl (31.0-36.0); Mean Corpuscular Hemoglobin 29.0 pg (27.0-33.0); Mean Corpuscular Volume 85.7 fL (80.0-98.0); NRBC Abs Auto 0.000 X10*3/uL (0.0-0.012); NRBC Pct Auto 0.0 /100WBC (0.0-0.2); Platelet Count 283 X10*3/uL (160-400); Red Blood Count 5.80 X10*6/uL (4.60-5.80); White Blood Count 8.1 X10*3/uL (4.8-10.8)
[2025-10-02 14:21] LABS: Hemoglobin A1C 151.3145 umol/L
[2025-10-02 14:42] LABS: Alanine Aminotransferase 44 U/L (0-40); Albumin Level 4.7 g/dL (3.5-5.0); Alkaline Phosphatase 49 U/L (39-117); Anion Gap 12 (12-20); Aspartate Amino Transferase 45 U/L (5-37); Blood Urea Nitrogen 16 mg/dL (9-16); Calcium 10.2 mg/dL (8.4-10.2); Carbon Dioxide 26 mmol/L (22-29); Chloride 106 mmol/L (96-108); Cholesterol 164 mg/dL (<200); Estimated Glomerular Filt Rate > 60; HDL Cholesterol 44 mg/dL (>40); Magnesium 2.1 mg/dL (1.6-2.6); Potassium 4.1 mmol/L (3.3-5.1); Sodium 140 mmol/L (135-145); Total Protein 7.6 g/dL (6.5-8.0); Triglycerides 206 mg/dL (<150)
[2025-10-02 15:17] LABS: Folate 6.9 ng/mL (> or = 4.0); Vitamin B12 468 pg/mL (200-900)
[2025-10-02 15:45] LABS: CT PCR Urine NOT DETECTED (Not Detect.); NG PCR Urine NOT DETECTED (Not Detect.)
[2025-10-03 03:42] LABS: Syphilis Screen Nonreactive (Nonreactive)
[2025-10-03 04:33] LABS: HBS Num1 > 1000.00 mIU/mL (0-7.99); HBsAGNum1 0.34 S/CO (0.00-0.99); HIV Num 1 0.05 S/CO (0.00-0.99); Hepatitis B Surface Antigen Negative (Negative); ~HepC Num1 0.16 S/CO (0.00-0.79); ~Hepatitis B Surface Antibody REACTIVE (Nonreactive); ~Hepatitis C Antibody Nonreactive (Nonreactive)
== END 2025-10-02 09:35 | disposition home or self-care (01) ==
LOC: HO.HKASLDS 09:34
PROVIDERS: PCP Student in an Organized Health Care Education/Training Program; Visit Provider Student in an Organized Health Care Education/Training Program
DX: Z13.6 Encounter for screening for cardiovascular disorders (principal); Z13.1 Encounter for screening for diabetes mellitus; Z13.29 Encounter for screening for other suspected endocrine disorder; Z11.4 Encounter for screening for human immunodeficiency virus [HIV]; Z20.2 Contact with and (suspected) exposure to infections with a predominantly sexual mode of transmission
CPT/HCPCS: 80053; 80061; 81003; 82306; 82607; 82746; 83036; 83735; 84443; 85025; 86706; 86780; 86803; 87340; 87389; 87491; 87591